=== PATIENT | male | born 1975 | race Caucasian/White ===

== ENCOUNTER 2018-02-20 13:32 | Emergency (ER) | payer SELFPAY, OTHER ==
[2018-02-20] MEDS: HALOPERIDOL 5 MG INJ IM (15:41)
== END 2018-02-20 18:39 | disposition home health service (06) ==
LOC: E/R 18:39
DX: F10.929 Alcohol use, unspecified with intoxication, unspecified (principal); R40.2252 Coma scale, best verbal response, oriented, at arrival to emergency department; F17.210 Nicotine dependence, cigarettes, uncomplicated; R40.2142 Coma scale, eyes open, spontaneous, at arrival to emergency department; R40.2362 Coma scale, best motor response, obeys commands, at arrival to emergency department
CPT/HCPCS: 80307; 96372; 99284-25